=== PATIENT | female | born 2005 | race Caucasian/White ===

== ENCOUNTER → 2023-10-15 09:49 | Outpatient (REF) | payer BC, OTHER, SELFPAY | LOC: CPAP 09:49 | PROVIDERS: ATTENDING PHYSICIAN Nurse Practitioner Adult Health | DX: Z01.419 Encounter for gynecological examination (general) (routine) without abnormal findings (principal); Z11.3 Encounter for screening for infections with a predominantly sexual mode of transmission | CPT/HCPCS: 87491; 87591 ==

== ENCOUNTER → 2024-01-11 06:18 | Day surgery (SDC) | payer BC, OTHER, SELFPAY | LOC: GI 06:18 | PROVIDERS: ATTENDING PHYSICIAN Internal Medicine Gastroenterology | DX: K62.5 Hemorrhage of anus and rectum (principal); Z80.0 Family history of malignant neoplasm of digestive organs; K64.8 Other hemorrhoids | CPT/HCPCS: 45378 ==

== ENCOUNTER → 2024-11-03 11:20 | Outpatient (REF) | payer BC, SELFPAY | LOC: CPAP 11:20 | PROVIDERS: ATTENDING PHYSICIAN Nurse Practitioner Adult Health | DX: Z01.419 Encounter for gynecological examination (general) (routine) without abnormal findings (principal); Z11.3 Encounter for screening for infections with a predominantly sexual mode of transmission | CPT/HCPCS: 87491; 87591 ==